=== PATIENT | female | born 1990 | race Caucasian/White ===

== ENCOUNTER 2016-03-13 08:59 | Emergency (ER) | payer OTHER ==
[~2016-03-13] VITALS: Wt 107.0 kg
[2016-03-13 11:24] LABS: ADD UMIC YES; URINE BILIRUBIN (Dip) NEGATIVE (NEGATIVE); URINE BLOOD (Dip) NEGATIVE (NEGATIVE); URINE COLOR LT. YELLOW (YELLOW); URINE GLUCOSE (Dip) NEGATIVE (NEGATIVE); URINE KETONES (Dip) 40 (NEGATIVE); URINE LEUKOCYTE ESTERASE (Dip) 3+ (NEGATIVE); URINE NITRITE (Dip) NEGATIVE (NEGATIVE); URINE TOTAL PROTEIN (Dip) TRACE (NEGATIVE); URINE UROBILINOGEN (Dip) 1.0 E.U./dL (0.1-1.0)
--- NOTE | 2016-03-13 11:25 | RADRPT ---
PROCEDURE: Right upper quadrant ultrasound CLINICAL INDICATION: Abdominal pain TECHNIQUE: Multiple real-time images were acquired of the patient's abdomen and right retroperiton eum utilizing a high resolution transducer. COMPARISON: None FINDINGS: The liver is increased in echogenicity and measures 17.9 cm. No focal hepatic masses are seen. The gallbladder is physiologically distended. There is no evidence of gallstones, gallbladder wall thi ckening, or pericholecystic fluid. The intra and extrahepatic bile ducts are normal in caliber. Th e common bile duct measures 4.13 mm. Midline images demonstrate the pancreas to be normal in echogenicity without obvious inflammatory ch wilner. Pancreatic tail is suboptimally seen Survey views of the right kidney demonstrate no evidence of hydronephrosis or renal calculi. The ri ght kidney measures 10.26 cm. IMPRESSION: Unremarkable right upper quadrant ultrasound. No evidence of cholelithiasis or acute cholecystitis. . RPTAT: HH .Freeman Shaw MD, Date Time Electronically viewed and signed by .Freeman Shaw MD, on 03/13/2016 11:24 .W/
[2016-03-13 11:40] LABS: ALBUMIN 4.2 g/dl (3.3-4.9)
[2016-03-13 11:42] LABS: BILIRUBIN,INDIRECT 0.5 mg/dl (0-1.1); BILIRUBIN,TOTAL 0.5 mg/dl (0.2-1.3); CREATININE 0.62 mg/dl (0.44-1.00)
[2016-03-13 11:43] LABS: ALBUMIN/GLOBULIN RATIO 1.13; BASOPHIL # 0.1 10^3/ul (0.0-0.1); BASOPHILS % 0.5 % (0.0-2.0); CALCIUM 9.4 mg/dl (8.4-10.2); EOSINOPHILS % 0.3 % (0.0-7.0); HEMATOCRIT 46.1 % (37.0-47.0); HEMOGLOBIN 15.4 g/dl (12.0-16.0); LYMPHOCYTES # 2.1 10^3/ul (0.8-2.9); LYMPHOCYTES % 18.9 % (15.0-51.0); MEAN CORPUSCULAR HEMOGLOBIN 30.3 pg (29.0-33.0); MEAN CORPUSCULAR HGB CONC 33.5 g/dl (32.0-37.0); MEAN CORPUSCULAR VOLUME 90.6 fl (82.0-101.0); MEAN PLATELET VOLUME 10.7 fl (7.4-10.4); MONOCYTE # 0.6 10^3/ul (0.3-0.9); MONOCYTES % 5.6 % (0.0-11.0); NEUTROPHIL # 8.2 10^3/ul (1.6-7.5); NEUTROPHILS % 74.7 % (39.0-77.0); PLATELET COUNT 214 10^3/UL (140-440); RED BLOOD COUNT 5.09 10^6/ul (4.20-5.40); RED CELL DISTRIBUTION WIDTH 13.2 % (11.5-14.5); TOTAL PROTEIN 7.9 g/dl (6.1-8.1); UNCORRECTED WBC 10.9 10^3/ul (4.8-10.8); WHITE BLOOD COUNT 10.9 10^3/ul (4.8-10.8)
--- NOTE | 2016-03-13 11:51 | RADRPT ---
PROCEDURE: US OB. CLINICAL INDICATION: Vaginal Bleed () TECHNIQUE: Multiple sonographic images of the pelvis were obtained. COMPARISON: No prior studies are available for comparison. FINDINGS: The gravid uterus is normal appearance. The ovaries are normal appearance. There is a single viable intrauterine gestation with yolk sac and pole identified.. No evidence of subchorionic hemorrh age. Cardiac activity is present with 130 beats per minute. Estimated gestational age of approximately 6 weeks 4 days. The estimated date of delivery is 11/02/2016. There are no adnexal masses.. IMPRESSION: 1. Single viable intrauterine gestation of approximately 6 weeks 4 days. The estimated date of deli very is 03/04/2016 . 2. No evidence of subchorionic hemorrhage. RPTAT:AAJJ Physician Lyly Date Time Electronically viewed and signed by Physician Lyly on 03/13/2016 11:51 KATIE/
[2016-03-13 11:53] LABS: CONDITION 1; SQUAMOUS EPITHELIAL CELL,UR MODERATE; URINE RBCS NONE SEEN /HPF (0)
[2016-03-13 11:54] LABS: BACTERIA,URINE FEW
[2016-03-13] MEDS ORDERED: NITR-58 PO (12:59)
[2016-03-13] MEDS ORDERED: ONDA4TAB8 PO (12:59)
[2016-03-13 13:13] VITALS: BP 124/74; PULSE 77; RESP 18
--- NOTE | 2016-03-13 15:14 | ERD ---
DATE OF SERVICE: 03/13/2016 HISTORY OF PRESENT ILLNESS: The patient is a 25-year-old female coming in complaining of nausea and vomiting for the last 4 days. She has had decreased appetite and has generalized abdominal pain. She states the pain comes and goes. She does not know what causes it or resolves it. It happens fo r about 30 minutes. She denies any change in urination or bowel movement. Denies any dysuria or he maturia. She is sexually active. She has irregular periods. Last normal menstrual period was 2015. She does not always use protection. Does not use control, unsure if she is pregn ant. PAST MEDICAL HISTORY: Denies any medical problems. ALLERGIES: DENIES ALLERGIES TO MEDICATIONS. SURGICAL HISTORY: Denies. SOCIAL HISTORY: Denies. REVIEW OF SYSTEMS: A 12-point review of systems was done. Refer to HPI for positives, all other sy stems negative. PHYSICAL EXAMINATION: VITAL SIGNS: Temperature is 97.8, pulse 93, blood pressure is 154/72, respiratory rate 20, O2 satur ation 100% on room air. Pain intensity 8/10. GENERAL: The patient is well-appearing, well-nourished, no acute distress. HEENT: Atraumatic. Conjunctivae are pink. Pupils equal, round, and reactive to light. There is no s cleral icterus. Tympanic membranes clear bilaterally. Oropharynx clear. No nystagmus or photophobia . CHEST: Clear to auscultation bilaterally. There are no rales, wheezes or rhonchi. HEART: Regular rate and rhythm. No murmurs, clicks, rubs or gallops. No S3 or S4. BACK: No midline or flank tenderness. SKIN: The patient has tenderness to palpation in the epigastric region as well as generalized tende rness to palpation over the lower abdominal region. There is no rebound tenderness or rigidity. EMERGENCY ROOM COURSE: The patient had a positive urine test in the ER. Patient had bloo d work done in the ER. CBC was within normal limits. CMP was within normal limits. Beta quant was 52,091. Patient's urine was 3+ leukocytes with 10 to 25 white blood cells. Blood type was A posit kelley. An obstetric ultrasound showed a single viable intrauterine gestation of approximately 6 weeks 4 days, estimated delivery 11/02/2016. No evidence of subchorionic hemorrhage. The patient had a right upper quadrant ultrasound which showed unremarkable right upper quadrant ultrasound, no eviden ce of cholelithiasis or acute cholecystitis. DIAGNOSES: 1. , new. 2. Urinary tract infection. 3. Vomiting. MEDICAL DECISION MAKING: I have low suspicion for pyelo, low suspicion for ectopic , low s uspicion for ovarian torsion. Low suspicion for other acute abdominal emergencies. Patient likely has vomiting secondary to first trimester and will be told to follow up with OB. Dischar ge ____stable. Patient is given a prescription for Zofran and Macrobid and told to follow up with [facility] or OB within 1 to 2 days for closer evaluation. The patient was told if symptoms change or worsen, to return to the ER. All other questions answered at time of discharge. Discharge summ diane given at the time of departure. Patient understood and complied with plan. Dictated By: LULA FONSECA/TRAV Conf#: [id number] DID#: [id number]
== END 2016-03-13 13:15 | disposition home or self-care (01) ==
LOC: FTE 08:59
DX: N39.0 Urinary tract infection, site not specified (principal); R11.2 Nausea with vomiting, unspecified; Z33.1 Pregnant state, incidental
CPT/HCPCS: 36415; 76705; 76801; 76817; 80053; 81001; 81003; 83690; 84702; 85025; 86900; 86901; Z7502

== ENCOUNTER 2016-11-29 19:28 | Emergency (ER) | payer MEDICAID, OTHER ==
[~2016-11-29] VITALS: Ht 160 cm; Wt 114.0 kg
[~2016-11-29 19:28] MED LIST: NITR-58 PO; ONDA4TAB8 PO
[2016-11-29 19:31] VITALS: Ht 160 cm; Wt 114.0 kg
--- NOTE | 2016-11-30 00:17 | RADRPT ---
PROCEDURE: XR Chest. CLINICAL INDICATION: Chest pain TECHNIQUE: Single AP portable chest. COMPARISON: 01/13/2012 Chest x-ray FINDINGS: The cardiomediastinal silhouette is within normal limits of size.The lungs are clear without pleura l effusion or focal consolidation. No pneumothorax. The osseous structures and soft tissues are unre markable. IMPRESSION: 1. No evidence for active cardiopulmonary disease. RPTAT:AAJJ Marci Patton Physician Date Time Electronically viewed and signed by Marci Patton Physician on 11/30/2016 00:17 KATIE/
[2016-11-30] MEDS ORDERED: morphine 4 MG/ML VIAL IV STA (00:22)
[2016-11-30] MEDS ORDERED: ONDANSETRON 4 MG INJ IV STA (00:22)
[2016-11-30 00:26] LABS: BASOPHILS % 0.4 % (0.0-2.0); EOSINOPHILS # 0.2 10^3/ul (0.0-0.5); EOSINOPHILS % 1.7 % (0.0-7.0); HEMATOCRIT 44.7 % (37.0-47.0); HEMOGLOBIN 14.6 g/dl (12.0-16.0); LYMPHOCYTES # 3.4 10^3/ul (0.8-2.9); LYMPHOCYTES % 30.3 % (15.0-51.0); MEAN CORPUSCULAR HGB CONC 32.7 g/dl (32.0-37.0); MEAN CORPUSCULAR VOLUME 91.8 fl (82.0-101.0); MEAN PLATELET VOLUME 11.4 fl (7.4-10.4); MONOCYTE # 0.8 10^3/ul (0.3-0.9); MONOCYTES % 7.6 % (0.0-11.0); NEUTROPHIL # 6.6 10^3/ul (1.6-7.5); NEUTROPHILS % 59.7 % (39.0-77.0); PLATELET COUNT 292 10^3/UL (140-415); RED BLOOD COUNT 4.87 10^6/ul (4.20-5.40); RED CELL DISTRIBUTION WIDTH 12.5 % (11.5-14.5); WHITE BLOOD COUNT 11.1 10^3/ul (4.8-10.8)
[2016-11-30 00:52] LABS: ALANINE AMINOTRANSFERASE 47 IU/L (13-69); ALBUMIN 4.2 g/dl (3.3-4.9); ALBUMIN/GLOBULIN RATIO 1.13; ALKALINE PHOSPHATASE 90 IU/L (42-121); ANION GAP 16 (8-16); ASPARTATE AMINO TRANSFERASE 24 IU/L (15-46); BILIRUBIN,INDIRECT 0.1 mg/dl (0-1.1); BILIRUBIN,TOTAL 0.1 mg/dl (0.2-1.3); BLOOD UREA NITROGEN 13 mg/dl (7-20); CALCIUM 9.2 mg/dl (8.4-10.2); CARBON DIOXIDE 28 mmol/L (21-31); CHLORIDE 105 mmol/L (97-110); CREATININE 0.84 mg/dl (0.44-1.00); GLUCOSE 98 mg/dl (70-220); POTASSIUM 3.8 mmol/L (3.5-5.1); SODIUM 145 mmol/L (135-144); TOTAL PROTEIN 7.9 g/dl (6.1-8.1)
[2016-11-30 01:02] LABS: B-TYPE NATRIURETIC PEPTIDE 76 PG/ML (0-125)
[2016-11-30 01:35] LABS: TROPONIN-I < 0.012 ng/ml (0.00-0.12)
[2016-11-30] MEDS ORDERED: SOD CHLORIDE 0.9% 100 ML ONE (02:17)
[2016-11-30] MEDS ORDERED: IOHEXOL 300MG/ML 150 ML BTL ONE (02:17)
--- NOTE | 2016-11-30 02:25 | RADRPT ---
PROCEDURE: CTA Chest CLINICAL INDICATION: Chest pain. Suspected pulmonary embolus. Shortness of breath. TECHNIQUE: Thin section spiral CT images were obtained through the vasculature of the chest during administration of 1 and cc of Omnipaque-300 contrast material. Multiplanar reconstructions and 3-D maximum intensity projection reconstructed images were performed. The images were reviewed on a [employer] workstation. The total exam CTDI equals 19.93 mGy, and the total exam DLP equals 738.46 mGy-cm. One or more of the following dose reduction techniques were used: automated exposure control, adju stment of the mA and/or kV according to patient size, or use of iterative reconstruction technique. COMPARISON: Chest x-ray from 11/30/2016 FINDINGS: Slight dependent atelectasis of the lungs is seen. No focal infiltrate or pleural effusion is seen. No pericardial effusion is seen. No hilar or mediastinal adenopathy is seen. There is no definite evidence for pulmonary embolus or aortic dissection. There may be mild hepatic steatosis. There i s mild degenerative change of the spine. IMPRESSION: No evidence for pulmonary embolus or aortic dissection. No definite acute disease. RPTAT: HLBE Physician Raj Date Time Electronically viewed and signed by Physician Raj on 11/30/2016 02:25 DEJON/
[2016-11-30] MEDS ORDERED: HYDR-902 PO (02:44)
--- NOTE | 2016-11-30 02:55 | ERD ---
ER Documentation Chief Complaint Chief Complaint chest pain x 3 hours HPI This is a 25-year-old female comes in with complaints of chest pain over the past 24 hours. She said it was gradual in onset and reproducible to touch. No nausea no vomiting no fevers no chills. No other current complaints. Chest pain is mild to moderate in intensity with no exacerbating or alleviating factors ROS All systems reviewed and are negative except as per history of present illness. Medications Home Meds Active Scripts Hydrocodone/Acetaminophen ([place] 10-325 Tablet) 1 Each Tablet, 1 TAB PO Q6H Y for PAIN, #7 TAB Prov:KATHERIN HERRING 11/30/16 Ondansetron Hcl* (Zofran*) 4 Mg Tablet, 4 MG PO Q6H for NAUSEA AND/OR VOMITING, #30 TAB Prov:NATASHA COHEN PA-C 03/13/16 Nitrofurantoin Monohyd Macrocr* (Macrobid*) 100 Mg Capsr, 100 MG PO BID for 7 Days, #14 CAP Prov:NATASHA COHEN PA-C 03/13/16 Allergies Allergies: Coded Allergies: No Known Drug Allergy (Verified Allergy, Unknown, 11/29/16) PMhx/Soc Medical and Surgical Hx: pt denies Medical Hx, pt denies Surgical Hx History of Surgery: No Anesthesia Reaction: No Hx Neurological Disorder: No Hx Respiratory Disorders: No Hx Cardiac Disorders: No Hx Psychiatric Problems: No Hx Miscellaneous Medical Probl: No Hx Alcohol Use: No Hx Substance Use: No Hx Tobacco Use: No Smoking Status: Never smoker Physical Exam Vitals Vital Signs Date Time Temp Pulse Resp B/P Pulse Ox O2 Delivery O2 Flow Rate FiO2 11/30/16 01:00 77 20 113/77 98 Room Air 11/30/16 00:00 79 15 119/81 100 Room Air 11/29/16 23:00 88 16 144/94 100 Room Air 11/29/16 22:38 95 16 145/88 98 Room Air 11/29/16 19:31 98.5 123 20 173/100 100 Physical Exam Const: [] Head: Atraumatic Eyes: Normal Conjunctiva ENT: Normal External Ears, Nose and Mouth. Neck: Full range of motion..~ No meningismus. Resp: Clear to auscultation bilaterally Cardio: Regular rate and rhythm, no murmurs Abd: Soft, non tender, non distended. Normal bowel sounds Skin: No petechiae or rashes Back: No midline or flank tenderness Ext: No cyanosis, or edema Neur: Awake and alert Psych: Normal Mood and Affect Result Diagram: 11/29/16233011/29/162330 Results 24 hrs Laboratory Tests Test 11/29/16 23:31 White Blood Count 11.110^3/ul Red Blood Count 4.8710^6/ul Hemoglobin 14.6g/dl Hematocrit 44.7% Mean Corpuscular Volume 91.8fl Mean Corpuscular Hemoglobin 30.0pg Mean Corpuscular Hemoglobin Concent 32.7g/dl Red Cell Distribution Width 12.5% Platelet Count 65349^3/UL Mean Platelet Volume 11.4fl Neutrophils % 59.7% Lymphocytes % 30.3% Monocytes % 7.6% Eosinophils % 1.7% Basophils % 0.4% Nucleated Red Blood Cells % 0.0/100WBC Neutrophils # 6.610^3/ul Lymphocytes # 3.410^3/ul Monocytes # 0.810^3/ul Eosinophils # 0.210^3/ul Basophils # 0.010^3/ul Nucleated Red Blood Cells # 0.010^3/ul Sodium Level 145mmol/L Potassium Level 3.8mmol/L Chloride Level 105mmol/L Carbon Dioxide Level 28mmol/L Anion Gap 16 Blood Urea Nitrogen 13mg/dl Creatinine 0.84mg/dl Glucose Level 98mg/dl Calcium Level 9.2mg/dl Total Bilirubin 0.1mg/dl Direct Bilirubin 0.00mg/dl Indirect Bilirubin 0.1mg/dl Aspartate Amino Transf (AST/SGOT) 24IU/L Alanine Aminotransferase (ALT/SGPT) 47IU/L Alkaline Phosphatase 90IU/L Troponin I < 0.012ng/ml B-Type Natriuretic Peptide 76PG/ML Total Protein 7.9g/dl Albumin 4.2g/dl Globulin 3.70g/dl Albumin/Globulin Ratio 1.13 Current Medications Medications (Trade) Dose Ordered Sig/Fina Route PRN Reason Start Time Stop Time Status Last Admin Dose Admin Morphine Sulfate (morphine) 4 mg ONCE STAT IV 11/30/16 00:22 11/30/16 00:33 DC 11/30/16 00:36 Ondansetron HCl 4 mg 4 mg ONCE STAT IV 11/30/16 00:22 11/30/16 00:33 DC 11/30/16 00:35 Sodium Chloride (NS) 100 ml @ ud STK-MED ONCE .ROUTE 11/30/16 02:17 11/30/16 02:18 DC 11/30/16 02:19 Iohexol (Omnipaque 300mg/ ml) 150 ml STK-MED ONCE .ROUTE 11/30/16 02:17 11/30/16 02:18 DC 11/30/16 02:18 Procedures/MDM EKG: Rate/Rhythm: [Normal Sinus Rhythm] QRS, ST, T-waves: [No changes consistent w/ acute ischemia] Impression: [No evidence of ischemia or arrhythmia] Chest X-ray 1V Interpreted by me: Soft Tissue: No acute abnormalities Bones: No acute abnormalities Mediastinum/Cardiac Silhouette/Lungs: [No acute abnormalities] Patient's thoracic symptoms have stabilized while in the department and are stable for outpatient follow up. Exam and work up not consistent w/ ischemia, arrhythmia, PE or dissection. Departure Diagnosis: Primary Impression: Chest pain Chest pain type: unspecified Qualified Code: R07.9 - Chest pain, unspecified type Condition: Stable Patient Instructions: Chest Pain, Uncertain Cause KATHERIN HERRING Nov 30, 2016 02:54
[2016-11-30 03:00] VITALS: BP 126/91; PULSE 74; RESP 20
[2016-11-30] MEDS ORDERED: METOCLOPRAMIDE 10 MG INJ IV ONE (04:00)
== END 2016-11-30 04:13 | disposition home or self-care (01) ==
LOC: E/R 19:28
DX: R07.9 Chest pain, unspecified (principal); R40.2142 Coma scale, eyes open, spontaneous, at arrival to emergency department; R40.2252 Coma scale, best verbal response, oriented, at arrival to emergency department; R40.2362 Coma scale, best motor response, obeys commands, at arrival to emergency department
CPT/HCPCS: 36415; 71010; 71275; 80053; 83880; 84484; 85025; 93005; 96374; 96375; J2270; J2405; J2765; Q9967; Z7502; Z7610